=== PATIENT | female | born 1960 | race African-American/Black ===

== ENCOUNTER 2020-03-21 03:34 | Emergency (ER) | payer OTHER ==
[~2020-03-21] VITALS: Ht 165.1 cm; Wt 72.6 kg
[2020-03-21] MEDS ORDERED: SODIUM CHLORIDE 0.9% 500 ML IV ONE (03:47)
[2020-03-21] MEDS ORDERED: ONDANSETRON HCL 4 MG/2 ML VIAL IV ONE (04:15)
[2020-03-21 04:30] VITALS: BP 138/63
[2020-03-21 04:49] LABS: Basophils # (auto) 0.1 10 ^3/uL (0-0.2); Basophils % (auto) 0.4 % (0.0-2.0); Eosinophils # (auto) 0 10 ^3/uL (0-0.8); Eosinophils % (auto) 0.1 % (0.0-7.0); Hematocrit 48.7 % (36.0-46.0); Hemoglobin 15.7 g/dL (12.2-16.2); Lymphocytes # (auto) 1.9 10 ^3/uL (0.4-5.4); Lymphocytes % (auto) 13.6 % (10.0-50.0); Mean Corpuscular Hemoglobin 28.4 pg (28.0-32.0); Mean Corpuscular Hgb Conc. 32.2 g/dL (32.0-36.0); Mean Corpuscular Volume 88.3 fL (80.0-100.0); Monocytes # (auto) 0.9 10 ^3/uL (0-1.3); Monocytes % (auto) 6.8 % (0.0-12.0); Neutrophils # (auto) 10.8 10 ^3/uL (1.6-8.6); Neutrophils % (auto) 79.1 % (37.0-80.0); Nucleated Red Blood Cells % 0.1 %; Platelet Count (auto) 335 10^3/uL (140-450); Red Blood Cells 5.51 10^6/uL (4.0-5.20); Red Cell Distribution Width 15.2 % (11.8-14.3); White Blood Cell 13.6 10^3/uL (4.4-10.8)
[2020-03-21 05:08] LABS: BUN/Creatinine Ratio 16.5; Calcium 9.4 mg/dL (8.5-10.1); Potassium 3.4 mmol/L (3.5-5.1)
[2020-03-21 05:11] LABS: Bilirubin, Total 0.7 mg/dL (0.2-1.0)
== END 2020-03-21 06:28 | disposition home or self-care (01) ==
LOC: ER 03:34
DX: K52.9 Noninfective gastroenteritis and colitis, unspecified (principal); R10.84 Generalized abdominal pain; G89.29 Other chronic pain
CPT/HCPCS: 36415; 74176; 80053; 82150; 83690; 85025; 96361; 96374; 99284; J2405

== ENCOUNTER 2020-03-23 18:14 | Inpatient (IN) | payer OTHER ==
[~2020-03-23] VITALS: Ht 175.3 cm; Wt 73.7 kg
[2020-03-23] MEDS ORDERED: ONDANSETRON HCL 4 MG/2 ML VIAL IV ONE ×2 (19:00→23:15)
[2020-03-23] MEDS ORDERED: PANTOPRAZOLE 40 MG/10 ML VIAL INJ IV ONE (19:00)
[2020-03-23] MEDS ORDERED: SODIUM CHLORIDE 0.9% 1,000 ML IV ONE (19:00)
[2020-03-23 19:18] LABS: Urine Bacteria NONE SEEN /hpf (None Seen); Urine Blood 2+ /uL (Negative); Urine Mucus FEW (None Seen); Urine WBC 20 /hpf (0 - 5)
[2020-03-23] MEDS ORDERED: cefTRIAXone 1GM/50ML D5W 50 ML IV ONE (20:30)
[2020-03-23 22:02] LABS: Basophils # (auto) 0 10 ^3/uL (0-0.2); Basophils % (auto) 0.5 % (0.0-2.0); Eosinophils # (auto) 0 10 ^3/uL (0-0.8); Eosinophils % (auto) 0.2 % (0.0-7.0); Hematocrit 46.3 % (36.0-46.0); Hemoglobin 15.2 g/dL (12.2-16.2); Lymphocytes # (auto) 1.4 10 ^3/uL (0.4-5.4); Lymphocytes % (auto) 14.9 % (10.0-50.0); Mean Corpuscular Hemoglobin 28.9 pg (28.0-32.0); Mean Corpuscular Hgb Conc. 32.8 g/dL (32.0-36.0); Mean Corpuscular Volume 88.1 fL (80.0-100.0); Monocytes # (auto) 0.9 10 ^3/uL (0-1.3); Monocytes % (auto) 10.2 % (0.0-12.0); Neutrophils # (auto) 6.8 10 ^3/uL (1.6-8.6); Neutrophils % (auto) 74.2 % (37.0-80.0); Nucleated Red Blood Cells % 0.1 %; Platelet Count (auto) 298 10^3/uL (140-450); Red Blood Cells 5.26 10^6/uL (4.0-5.20); White Blood Cell 9.1 10^3/uL (4.4-10.8)
[2020-03-23 22:20] LABS: Albumin 3.9 g/dL (3.4-5.0); Calcium 9.1 mg/dL (8.5-10.1); Magnesium 2.4 mg/dL (1.6-2.6); Potassium 3.4 mmol/L (3.5-5.1)
[2020-03-23 22:27] LABS: Bilirubin, Total 0.8 mg/dL (0.2-1.0); Total Protein 7.7 g/dL (6.4-8.2)
[2020-03-23] MEDS ORDERED: ASPirin 81 mg TAB PO ONE (23:15)
[2020-03-23] MEDS ORDERED: CLOPIDOGREL BISULFATE 75 MG TAB PO ONE (23:15)
[2020-03-23] MEDS ORDERED: MORPHINE SULF INJ 2 MG/ML SYRINGE 1ML IV ONE (23:15)
[2020-03-23] MEDS ORDERED: POTASSIUM CHL 20 Meq TABLET PO ONE (23:45)
[2020-03-24 00:16] LABS: INR 1.04 (0.9-1.15); Partial Thromboplastin Time 26.6 sec (23.0-31.2)
[2020-03-24 01:32] LABS: Alcohol, Urine < 3.0 mg/dL (0-10); Amphetamine Screen, Urine NEGATIVE (NEGATIVE); Barbiturate Scree,Urine NEGATIVE (NEGATIVE); Benzodiazephine Screen, Urine NEGATIVE (NEGATIVE); Cannabinoid Screen, Urine NEGATIVE (NEGATIVE); Cocaine Screen, Urine NEGATIVE (NEGATIVE); Opiate Scree,Urine POSITIVE (NEGATIVE); Phencyclidine Screen, Urine NEGATIVE (NEGATIVE)
[2020-03-24] MEDS ORDERED: TEMAZEPAM 15 MG CAP PO PRN (02:45)
[2020-03-24] MEDS ORDERED: ACETAMINOPHEN 325 MG TAB PO PRN (02:45)
[2020-03-24] MEDS ORDERED: NITROGLYCERIN 0.4 MG SL TAB SL PRN (02:45)
[2020-03-24] MEDS ORDERED: MORPHINE SULF INJ 2 MG/ML SYRINGE 1ML IV PRN (02:45)
[2020-03-24] MEDS ORDERED: ONDANSETRON HCL 4 MG/2 ML VIAL IV PRN (02:45)
[2020-03-24 04:10] VITALS: BP 160/94
[2020-03-24] MEDS: cloNIDine HCL 0.1 MG TAB PO PRN ×2 (04:32→22:06)
[2020-03-24] MEDS ORDERED: MORP15TA PO (04:34)
[2020-03-24] MEDS ORDERED: GAB100C PO (04:34)
[2020-03-24] MEDS ORDERED: LEVO100T8 PO (04:34)
[2020-03-24 09:00] VITALS: BP 160/90
[2020-03-24] MEDS: FAMOTIDINE 20 MG TAB PO SCH ×2 (09:55→22:06)
[2020-03-24] MEDS: ASPirin 81 mg TAB PO SCH (09:55)
[2020-03-24] MEDS: cefTRIAXone 1GM/50ML D5W 50 ML IV SCH (09:55)
[2020-03-24] MEDS: ENOXAPARIN SOD 40 MG/0.4 ML SYRINGE SC SCH (09:55)
[2020-03-24] MEDS ORDERED: DOCUSATE SOD 100 MG CAP PO ONE (11:30)
[2020-03-24 13:00] VITALS: BP 141/75
--- NOTE | 2020-03-24 13:18 | NUR ---
Dr. Cowan regarding pain meds. Awaiting to call back.
[2020-03-24] MEDS: SOD CHL 0.9%/ KCL 20MEQ 1,000 ML IV SCH (13:20)
--- NOTE | 2020-03-24 14:08 | NUR ---
Received a call from Dr. Cowan, noted and carried it out.
[2020-03-24] MEDS ORDERED: GABAPENTIN 100 MG CAP PO ONE (14:15)
[2020-03-24] MEDS ORDERED: MORPHINE SULF 15mg ER tab PO PRN (14:15)
[2020-03-24] MEDS: MORPHINE SULFATE 10 MG/5 ML ORAL SOLN PO PRN ×2 (14:36→22:36)
[2020-03-24 17:00] VITALS: BP 162/96
[2020-03-24 18:27] VITALS: BP 159/90
--- NOTE | 2020-03-24 19:00 | NUR ---
Opening Shift Note Assumed care of patient, awake and alert. No S/S of distress/SOB or pain. Patient safety measures in place bed in lowest position, side rails up x2, and call light within reach. Instructed on POC and to call for assist PRN, will continue to monitor for changes Q1hr and PRN.
--- NOTE | 2020-03-24 21:00 | NUR ---
IV removal IV DC'd with clean sterile technique, catheter fully intact. Pressure dressing applied to site. Patient tolerated well. IV insertion IV access obtained, via clean sterile technique by inserting 22 gauge catheter at Right AC after 2 attempts. Patient tolerated procedure.
[2020-03-24 22:00] VITALS: BP 165/94
[2020-03-24] MEDS: GABAPENTIN 100 MG CAP PO SCH (22:05)
[2020-03-24] MEDS: ATORVASTATIN 20 MG TAB PO SCH (22:05)
[2020-03-24] MEDS: DOCUSATE SOD 100 MG CAP PO SCH (22:05)
[2020-03-25] MEDS: cloNIDine HCL 0.1 MG TAB PO PRN ×2 (04:17→15:40)
[2020-03-25 05:00] VITALS: BP 162/93
[2020-03-25] MEDS: SOD CHL 0.9%/ KCL 20MEQ 1,000 ML IV SCH ×2 (05:38→17:45)
[2020-03-25] MEDS: GABAPENTIN 100 MG CAP PO SCH ×3 (06:35→21:51)
[2020-03-25 06:36] LABS: Basophils # (auto) 0 10 ^3/uL (0-0.2); Basophils % (auto) 0.4 % (0.0-2.0); Eosinophils # (auto) 0.1 10 ^3/uL (0-0.8); Hematocrit 44.3 % (36.0-46.0); Hemoglobin 14.7 g/dL (12.2-16.2); Lymphocytes % (auto) 15.7 % (10.0-50.0); Mean Corpuscular Hemoglobin 29.9 pg (28.0-32.0); Mean Corpuscular Hgb Conc. 33.2 g/dL (32.0-36.0); Mean Corpuscular Volume 90.1 fL (80.0-100.0); Monocytes # (auto) 0.7 10 ^3/uL (0-1.3); Monocytes % (auto) 10.4 % (0.0-12.0); Neutrophils # (auto) 4.7 10 ^3/uL (1.6-8.6); Neutrophils % (auto) 72.5 % (37.0-80.0); Platelet Count (auto) 206 10^3/uL (140-450); Red Blood Cells 4.92 10^6/uL (4.0-5.20); Red Cell Distribution Width 14.9 % (11.8-14.3); White Blood Cell 6.4 10^3/uL (4.4-10.8)
[2020-03-25] MEDS: MORPHINE SULFATE 10 MG/5 ML ORAL SOLN PO PRN ×2 (06:36→14:41)
[2020-03-25 06:58] LABS: BUN/Creatinine Ratio 7.7; Calcium 8.2 mg/dL (8.5-10.1); Magnesium 1.9 mg/dL (1.6-2.6); Potassium 3.2 mmol/L (3.5-5.1)
[2020-03-25] MEDS: FAMOTIDINE 20 MG TAB PO SCH (08:53)
[2020-03-25] MEDS: DOCUSATE SOD 100 MG CAP PO SCH ×2 (08:53→21:50)
[2020-03-25] MEDS: ASPirin 81 mg TAB PO SCH (08:54)
[2020-03-25] MEDS: ENOXAPARIN SOD 40 MG/0.4 ML SYRINGE SC SCH (08:54)
[2020-03-25] MEDS: cefTRIAXone 1GM/50ML D5W 50 ML IV SCH (08:55)
[2020-03-25 09:00] VITALS: BP 158/83
[2020-03-25] MEDS ORDERED: POTASSIUM CHL 20 Meq TABLET PO ONE (10:00)
[2020-03-25] MEDS ORDERED: LACTULOSE 20Gm/30ML SOLN PO PRN (10:15)
[2020-03-25] MEDS ORDERED: LACTULOSE 20Gm/30ML SOLN PO ONE (10:15)
[2020-03-25] MEDS ORDERED: PANTOPRAZOLE 40 MG/10 ML VIAL INJ IV ONE (10:15)
[2020-03-25 13:00] VITALS: BP 161/75
--- NOTE | 2020-03-25 13:50 | NUR ---
Nutrition Assessment/Consult Notes Please refer to link for full assessment notes. Est Energy needs: 8501-7806 kcals (20-23 kcal/kgBW) Est Protein needs: 60-75 gms/day (0.8-1.0 gm/kgBW) Will continue to monitor and reassess prn. Addendum: 03/25/20 at [address] Amended: Links added.
--- NOTE | 2020-03-25 16:40 | NUR ---
paged Dr. Cowan re: pt is asking for lidoderm patch for back pain.
--- NOTE | 2020-03-25 16:52 | NUR ---
PT REPORTS THAT SHE WALKS FINE AND DOES NOT NEED P.T. INTERVENTION.
[2020-03-25 17:00] VITALS: BP 130/105
[2020-03-25] MEDS ORDERED: LIDOCAINE 5% TOPICAL PATCH TOP ONE (17:15)
[2020-03-25] MEDS: ATORVASTATIN 20 MG TAB PO SCH (21:51)
[2020-03-25 22:00] VITALS: BP 154/84
[2020-03-26] MEDS: MORPHINE SULFATE 10 MG/5 ML ORAL SOLN PO PRN ×3 (00:16→21:10)
[2020-03-26] MEDS: SOD CHL 0.9%/ KCL 20MEQ 1,000 ML IV SCH ×2 (03:00→17:54)
[2020-03-26 05:00] VITALS: BP 141/85
[2020-03-26] MEDS: GABAPENTIN 100 MG CAP PO SCH ×3 (06:06→22:24)
--- NOTE | 2020-03-26 07:28 | NUR ---
Lidocaine Patch Removed the patient's Lidocaine patch this morning at 0725hrs. The patch was supposed to be removed earlier but I was distracted by a code assist around that time on the floor. Will continue to monitor.
--- NOTE | 2020-03-26 08:00 | NUR ---
OPENING SHIFT NOTE ASSUMED CARE OF PATIENT AWAKE AND ALERT. NO S/S OF DISTRESS NOTED OR COMPLAINTS OF PAIN. PATIENT UPDATED ON POC FOR THE DAY AND ALL QUESTIONS ANSWERED. BED IS IN LOWEST, LOCKED POSITION WITH SIDE RAILS UP X2 AND CALL LIGHT WITHIN REACH. WILL CONTINUE TO MONITOR Q1H AND PRN.
[2020-03-26 09:00] VITALS: BP 145/77
[2020-03-26] MEDS: ENOXAPARIN SOD 40 MG/0.4 ML SYRINGE SC SCH (09:57)
[2020-03-26] MEDS: cefTRIAXone 1GM/50ML D5W 50 ML IV SCH (09:57)
[2020-03-26] MEDS: DOCUSATE SOD 100 MG CAP PO SCH ×2 (09:57→22:00)
[2020-03-26] MEDS: ASPirin 81 mg TAB PO SCH (09:57)
[2020-03-26] MEDS: PANTOPRAZOLE 40 MG/10 ML VIAL INJ IV SCH (09:57)
[2020-03-26 13:00] VITALS: BP 143/74
[2020-03-26 17:00] VITALS: BP 161/99
[2020-03-26] MEDS: LIDOCAINE 5% TOPICAL PATCH TOP SCH (17:54)
--- NOTE | 2020-03-26 19:30 | NUR ---
Opening Shift Note Assumed care of patient, awake and alertx4. No S/S of distress/SOB or pain. Call light is within reach, side rails up x2, bed is in the lowest position. Instructed on POC and to call for assist PRN, will continue to monitor for changes Q1hr and PRN.
[2020-03-26 22:00] VITALS: BP 154/83
[2020-03-26] MEDS: ATORVASTATIN 20 MG TAB PO SCH (22:24)
[2020-03-27 05:00] VITALS: BP 155/79
[2020-03-27 05:54] LABS: Potassium 3.5 mmol/L (3.5-5.1)
[2020-03-27 05:59] LABS: BUN/Creatinine Ratio 8.5; Calcium 8.7 mg/dL (8.5-10.1); Magnesium 2.2 mg/dL (1.6-2.6)
[2020-03-27] MEDS: SOD CHL 0.9%/ KCL 20MEQ 1,000 ML IV SCH ×2 (06:10→19:30)
[2020-03-27] MEDS: GABAPENTIN 100 MG CAP PO SCH ×3 (06:35→22:03)
[2020-03-27] MEDS: MORPHINE SULFATE 10 MG/5 ML ORAL SOLN PO PRN ×3 (06:36→22:56)
--- NOTE | 2020-03-27 07:16 | NUR ---
Endorsed care to dayshift [facility]. Patient is resting in bed, call light is within reach.
[2020-03-27 09:10] VITALS: BP 147/88
[2020-03-27] MEDS: ASPirin 81 mg TAB PO SCH (09:45)
[2020-03-27] MEDS: PANTOPRAZOLE 40 MG/10 ML VIAL INJ IV SCH (09:45)
[2020-03-27] MEDS: ENOXAPARIN SOD 40 MG/0.4 ML SYRINGE SC SCH (09:45)
[2020-03-27] MEDS: cefTRIAXone 1GM/50ML D5W 50 ML IV SCH (09:45)
[2020-03-27] MEDS: DOCUSATE SOD 100 MG CAP PO SCH ×2 (09:45→22:03)
[2020-03-27 12:23] VITALS: BP 157/81
[2020-03-27 16:42] VITALS: BP 158/88
[2020-03-27] MEDS: LIDOCAINE 5% TOPICAL PATCH TOP SCH (17:00)
--- NOTE | 2020-03-27 19:30 | NUR ---
Opening Shift Note Assumed care of patient, awake and alert x4. No S/S of distress/SOB or pain. Call light is within reach, side rails up x2, bed is in the lowest position. Instructed on POC and to call for assist PRN, will continue to monitor for changes Q1hr and PRN.
[2020-03-27 22:00] VITALS: BP 139/84
[2020-03-27] MEDS: ATORVASTATIN 20 MG TAB PO SCH (22:03)
[2020-03-28 05:00] VITALS: BP 141/87
[2020-03-28] MEDS: GABAPENTIN 100 MG CAP PO SCH ×2 (06:56→13:07)
[2020-03-28] MEDS: SOD CHL 0.9%/ KCL 20MEQ 1,000 ML IV SCH (08:50)
[2020-03-28 08:51] VITALS: BP 146/79
[2020-03-28] MEDS: cefTRIAXone 1GM/50ML D5W 50 ML IV SCH (09:15)
[2020-03-28] MEDS: ENOXAPARIN SOD 40 MG/0.4 ML SYRINGE SC SCH (09:16)
[2020-03-28] MEDS: DOCUSATE SOD 100 MG CAP PO SCH (09:16)
[2020-03-28] MEDS: ASPirin 81 mg TAB PO SCH (09:16)
[2020-03-28] MEDS: PANTOPRAZOLE 40 MG/10 ML VIAL INJ IV SCH (09:16)
[2020-03-28 13:00] VITALS: BP 167/94
[2020-03-28] MEDS: cloNIDine HCL 0.1 MG TAB PO PRN (13:08)
[2020-03-28 14:49] VITALS: BP 144/91
--- NOTE | 2020-03-28 14:55 | NUR ---
DISCHARGE INSTRUCTIONS PROVIDED TO PT. PT VERBALIZED UNDERSTANDING FOR CONTINUATION OF HOME MEDICATIONS AND FOLLOW UP APPOINTMENT. PT EDUCATED ON BP MONITORING. EDUCATIONAL MATERIALS PROVIDED; ALL QUESTIONS AND CONCERNS ADDRESSED. IV CATHETER DC #20 CATHETER INTACT, NO PHLEBITIS, TELE BOX REMOVED AND RETURNED TO TELE DEPT. PT SAFELY ESCORTED OUT OF UNIT. NO S/S OF DISTRESS.
== END 2020-03-28 15:00 | disposition home or self-care (01) | DRG 392 ==
LOC: ER 18:14 → TELE-WESTW 18:15
PROVIDERS: ADMIT Nurse Practitioner; ATTEND Internal Medicine Geriatric Medicine
DX: K52.9 Noninfective gastroenteritis and colitis, unspecified (principal); N39.0 Urinary tract infection, site not specified; E87.6 Hypokalemia; E03.9 Hypothyroidism, unspecified; I10 Essential (primary) hypertension; G89.29 Other chronic pain; E86.0 Dehydration; E78.5 Hyperlipidemia, unspecified; K59.00 Constipation, unspecified; M54.5 Low back pain; D35.01 Benign neoplasm of right adrenal gland; R79.89 Other specified abnormal findings of blood chemistry
CPT/HCPCS: 36415; 70450; 71045; 74176; 80048; 80053; 80307; 81001; 82150; 83690; 83735; 83880; 84443; 84484; 85025; 85610; 85730; 93005; 93306; 93971; C9113; G0378; J0696; J2405

== ENCOUNTER 2021-04-20 15:33 | Emergency (ER) | payer OTHER ==
[~2021-04-20] VITALS: Ht 165.1 cm; Wt 64.9 kg
[~2021-04-20 15:33] MED LIST: GAB100C PO; LEVO100T8 PO; MORP15TA PO
[2021-04-20 16:14] LABS: Basophils # (auto) 0.1 10 ^3/uL (0-0.2); Basophils % (auto) 0.6 % (0.0-2.0); Eosinophils # (auto) 0 10 ^3/uL (0-0.8); Eosinophils % (auto) 0.2 % (0.0-7.0); Hematocrit 41.4 % (36.0-46.0); Lymphocytes # (auto) 1.4 10 ^3/uL (0.4-5.4); Lymphocytes % (auto) 14.9 % (10.0-50.0); Mean Corpuscular Hemoglobin 30.4 pg (28.0-32.0); Mean Corpuscular Hgb Conc. 33.7 g/dL (32.0-36.0); Mean Corpuscular Volume 90.2 fL (80.0-100.0); Monocytes # (auto) 0.7 10 ^3/uL (0-1.3); Monocytes % (auto) 7.2 % (0.0-12.0); Neutrophils # (auto) 7.2 10 ^3/uL (1.6-8.6); Neutrophils % (auto) 77.1 % (37.0-80.0); Red Blood Cells 4.59 10^6/uL (4.0-5.20); Red Cell Distribution Width 14.5 % (11.8-14.3); White Blood Cell 9.4 10^3/uL (4.4-10.8)
[2021-04-20 16:35] LABS: Alanine Aminotransferase 24 U/L (13-56); Albumin 3.7 g/dL (3.4-5.0); Anion Gap 7 (5-15); Aspartate Aminotransferase 15 U/L (15-37); BUN/Creatinine Ratio 22.4; Blood Urea Nitrogen 17 mg/dL (7-18); Calcium 9.1 mg/dL (8.5-10.1); Carbon Dioxide 29 mmol/L (21-32); Chloride 103 mmol/L (98-107); GFR African American 100 mL/min; GFR Non-African American 83 mL/min; Glucose 103 mg/dL (74-106); Potassium 4.3 mmol/L (3.5-5.1); Sodium 139 mmol/L (136-145)
[2021-04-20 16:40] LABS: Alkaline Phosphatase 51 U/L (45-117); Bilirubin, Total 0.4 mg/dL (0.2-1.0); Total Protein 7.5 g/dL (6.4-8.2)
[2021-04-20 18:15] LABS: Urine Bacteria NONE SEEN /hpf (None Seen); Urine Blood 2+ /uL (Negative); Urine Specific Gravity 1.007 (1.001-1.035); Urine WBC <1 /hpf (0 - 5)
[2021-04-20 18:17] VITALS: BP 164/87
== END 2021-04-20 18:33 | disposition home or self-care (01) ==
LOC: ER 15:35
DX: R42 Dizziness and giddiness (principal); I16.0 Hypertensive urgency; Z87.891 Personal history of nicotine dependence
CPT/HCPCS: 36415; 80053; 81001; 84484; 85025; 93005

== ENCOUNTER 2021-04-20 20:56 | Emergency (ER) | payer OTHER ==
[~2021-04-20] VITALS: Ht 165.1 cm; Wt 64.9 kg
[2021-04-20] MEDS ORDERED: ALUM & MAG HYDROX-SIMETH LIQ(MAALOX) 30 ML PO ONE (21:45)
[2021-04-20] MEDS ORDERED: ONDANSETRON ODT 4 MG TAB PO ONE (21:45)
[2021-04-20] MEDS ORDERED: HYDROcodone-ACET 5/325MG TAB PO ONE (21:45)
[2021-04-20 22:22] LABS: Basophils # (auto) 0.1 10 ^3/uL (0-0.2); Basophils % (auto) 0.7 % (0.0-2.0); Eosinophils # (auto) 0 10 ^3/uL (0-0.8); Eosinophils % (auto) 0.5 % (0.0-7.0); Hematocrit 41.2 % (36.0-46.0); Hemoglobin 13.9 g/dL (12.2-16.2); Lymphocytes # (auto) 1.7 10 ^3/uL (0.4-5.4); Lymphocytes % (auto) 18.8 % (10.0-50.0); Mean Corpuscular Hemoglobin 30.3 pg (28.0-32.0); Mean Corpuscular Hgb Conc. 33.8 g/dL (32.0-36.0); Mean Corpuscular Volume 89.9 fL (80.0-100.0); Monocytes # (auto) 0.7 10 ^3/uL (0-1.3); Monocytes % (auto) 7.7 % (0.0-12.0); Neutrophils # (auto) 6.4 10 ^3/uL (1.6-8.6); Neutrophils % (auto) 72.3 % (37.0-80.0); Red Blood Cells 4.59 10^6/uL (4.0-5.20); Red Cell Distribution Width 14.4 % (11.8-14.3); White Blood Cell 8.9 10^3/uL (4.4-10.8)
[2021-04-20 22:40] LABS: Albumin 3.6 g/dL (3.4-5.0); Anion Gap 8 (5-15); Blood Urea Nitrogen 14 mg/dL (7-18); Calcium 9.1 mg/dL (8.5-10.1); Carbon Dioxide 30 mmol/L (21-32); Chloride 102 mmol/L (98-107); Glucose 106 mg/dL (74-106); Lipase 29 U/L (73-393); Potassium 3.7 mmol/L (3.5-5.1); Sodium 140 mmol/L (136-145)
[2021-04-20 22:42] LABS: Alanine Aminotransferase 21 U/L (13-56); Aspartate Aminotransferase 15 U/L (15-37); BUN/Creatinine Ratio 17.9; GFR African American 97 mL/min; GFR Non-African American 80 mL/min
[2021-04-20 22:46] LABS: Alkaline Phosphatase 49 U/L (45-117); Bilirubin, Total 0.5 mg/dL (0.2-1.0); Total Protein 7.7 g/dL (6.4-8.2)
[2021-04-21 00:16] VITALS: BP 159/72
[2021-04-21 01:43] LABS: Urine Bacteria NONE SEEN /hpf (None Seen); Urine Blood 2+ /uL (Negative); Urine Mucus FEW (None Seen); Urine Specific Gravity 1.018 (1.001-1.035); Urine WBC 1 /hpf (0 - 5)
== END 2021-04-21 00:20 | disposition home or self-care (01) ==
LOC: ER 20:56
DX: K51.30 Ulcerative (chronic) rectosigmoiditis without complications (principal); Z79.899 Other long term (current) drug therapy; Z87.891 Personal history of nicotine dependence
CPT/HCPCS: 36415; 74176; 76705; 80053; 81001; 83690; 84484; 85025; 99285; Q0162

== ENCOUNTER 2021-04-22 06:04 | Emergency (ER) | payer OTHER ==
[~2021-04-22] VITALS: Ht 165.1 cm; Wt 64.9 kg
[2021-04-22] MEDS ORDERED: MORPHINE SULFATE 4 MG/ML SYR/VIAL ONE (07:27)
[2021-04-22] MEDS ORDERED: PROMETHAZINE HCL 25 MG/ML 1ML IM ONE (07:30)
[2021-04-22] MEDS ORDERED: MORPHINE SULFATE 10 MG/ML INJ 1ML SDV IM ONE (07:30)
[2021-04-22] MEDS ORDERED: MORPHINE SULFATE 4 MG/ML SYR/VIAL IV ONE (07:30)
[2021-04-22] MEDS ORDERED: MORPHINE SULFATE 4 MG/ML SYR/VIAL IM ONE (07:30)
[2021-04-22] MEDS ORDERED: KETOROLAC TROMETH 60MG/2ML VIAL IM ONE (07:45)
[2021-04-22 08:04] VITALS: BP 133/72
== END 2021-04-22 08:06 | disposition home or self-care (01) ==
LOC: ER 06:04
DX: R10.12 Left upper quadrant pain (principal); R10.32 Left lower quadrant pain; G89.29 Other chronic pain; M54.5 Low back pain; Z87.891 Personal history of nicotine dependence; Z79.899 Other long term (current) drug therapy
CPT/HCPCS: 93005; 96372; 99284; J1885; J2550

== ENCOUNTER 2021-07-11 22:51 | Emergency (ER) | payer OTHER ==
[~2021-07-11] VITALS: Ht 165.1 cm; Wt 68.0 kg
[2021-07-12 00:35] VITALS: BP 131/105
== END 2021-07-12 01:14 | disposition home or self-care (01) ==
LOC: ER 22:54
DX: G43.909 Migraine, unspecified, not intractable, without status migrainosus (principal); E03.9 Hypothyroidism, unspecified; Z87.891 Personal history of nicotine dependence
CPT/HCPCS: 70450

== ENCOUNTER 2021-09-11 22:52 | Emergency (ER) | payer OTHER ==
[~2021-09-11] VITALS: Ht 165.1 cm; Wt 70.3 kg
[2021-09-12] MEDS ORDERED: HYDROmorphone HCL 2 MG/ML VL IM ONE (07:15)
[2021-09-12] MEDS ORDERED: ONDANSETRON ODT 4 MG TAB PO ONE (07:15)
[2021-09-12 07:56] LABS: Urine Bacteria FEW /hpf (None Seen); Urine Blood 2+ /uL (Negative); Urine Specific Gravity 1.009 (1.001-1.035); Urine WBC <1 /hpf (0 - 5)
[2021-09-12] MEDS ORDERED: SULF800T7 PO (08:02)
[2021-09-12 08:13] VITALS: BP 131/82
== END 2021-09-12 08:26 | disposition home or self-care (01) ==
LOC: ER 22:52
DX: M54.50 Low back pain, unspecified (principal); M54.6 Pain in thoracic spine; N39.0 Urinary tract infection, site not specified; Z76.0 Encounter for issue of repeat prescription; Z87.891 Personal history of nicotine dependence
CPT/HCPCS: 81001; 93005; 96372; 99284; J1170; Q0162

== ENCOUNTER 2022-04-13 10:47 | Emergency (ER) | payer OTHER ==
[~2022-04-13] VITALS: Ht 165.1 cm; Wt 65.4 kg
[~2022-04-13 10:47] MED LIST changes: +SULF800T7 PO
[2022-04-13] MEDS ORDERED: MORPHINE SULFATE 4 MG/ML SYR/VIAL IV ONE (11:30)
[2022-04-13] MEDS ORDERED: PANTOPRAZOLE 40 MG/10 ML VIAL INJ IV ONE (11:30)
[2022-04-13] MEDS ORDERED: ONDANSETRON HCL 4 MG/2 ML VIAL IV ONE (11:30)
[2022-04-13] MEDS ORDERED: SODIUM CHLORIDE 0.9% 1,000 ML IVB ONE (11:30)
[2022-04-13 11:47] LABS: Basophils # (auto) 0.1 10 ^3/uL (0-0.2); Basophils % (auto) 0.7 % (0.0-2.0); Eosinophils # (auto) 0 10 ^3/uL (0-0.8); Eosinophils % (auto) 0.2 % (0.0-7.0); Hematocrit 43.5 % (36.0-46.0); Hemoglobin 14.3 g/dL (12.2-16.2); Lymphocytes # (auto) 1.4 10 ^3/uL (0.4-5.4); Lymphocytes % (auto) 14.8 % (10.0-50.0); Mean Corpuscular Hemoglobin 28.9 pg (28.0-32.0); Mean Corpuscular Hgb Conc. 32.8 g/dL (32.0-36.0); Mean Corpuscular Volume 88.4 fL (80.0-100.0); Monocytes # (auto) 0.5 10 ^3/uL (0-1.3); Monocytes % (auto) 5.2 % (0.0-12.0); Neutrophils # (auto) 7.6 10 ^3/uL (1.6-8.6); Neutrophils % (auto) 79.1 % (37.0-80.0); Nucleated Red Blood Cells % 0.1 %; Red Blood Cells 4.93 10^6/uL (4.0-5.20); Red Cell Distribution Width 14.3 % (11.8-14.3); White Blood Cell 9.6 10^3/uL (4.4-10.8)
[2022-04-13 12:01] LABS: Albumin 3.8 g/dL (3.4-5.0); Potassium 4.2 mmol/L (3.5-5.1)
[2022-04-13 12:11] LABS: BUN/Creatinine Ratio 21.9; Bilirubin, Total 0.7 mg/dL (0.2-1.0); Calcium 9.4 mg/dL (8.5-10.1); Total Protein 7.7 g/dL (6.4-8.2)
[2022-04-13 12:33] LABS: Alcohol, Urine < 3.0 mg/dL (0-10); Benzodiazephine Screen, Urine NEGATIVE (NEGATIVE); Cannabinoid Screen, Urine NEGATIVE (NEGATIVE)
[2022-04-13 12:41] LABS: Amphetamine Screen, Urine NEGATIVE (NEGATIVE); Barbiturate Scree,Urine NEGATIVE (NEGATIVE); Cocaine Screen, Urine NEGATIVE (NEGATIVE); Opiate Scree,Urine POSITIVE (NEGATIVE); Phencyclidine Screen, Urine NEGATIVE (NEGATIVE)
[2022-04-13 13:00] LABS: Urine Bacteria NONE SEEN /hpf (None Seen); Urine Blood 3+ /uL (Negative); Urine Specific Gravity 1.012 (1.001-1.035); Urine WBC 1 /hpf (0 - 5)
[2022-04-13 13:43] LABS: INR 1.02 (0.9-1.15)
[2022-04-13] MEDS ORDERED: ONDA-144 PO (14:23)
[2022-04-13] MEDS ORDERED: TRAM-297 PO (14:23)
[2022-04-13 15:35] VITALS: BP 143/63
== END 2022-04-13 15:37 | disposition home or self-care (01) ==
LOC: ER 10:47
DX: R10.32 Left lower quadrant pain (principal); R10.12 Left upper quadrant pain; E03.9 Hypothyroidism, unspecified; G89.29 Other chronic pain; M54.9 Dorsalgia, unspecified; Z90.89 Acquired absence of other organs; Z87.891 Personal history of nicotine dependence; Z79.899 Other long term (current) drug therapy
CPT/HCPCS: 36415; 74176; 80053; 80307; 81001; 83690; 83735; 85025; 85610; 85730

== ENCOUNTER 2022-07-16 04:46 | Emergency (ER) | payer OTHER ==
[~2022-07-16] VITALS: Ht 165.1 cm; Wt 66.8 kg
[~2022-07-16 04:46] MED LIST changes: +ONDA-144 PO; +TRAM-297 PO
[2022-07-16 07:44] VITALS: BP 124/79
[2022-07-16] MEDS ORDERED: KETOROLAC TROMETH 30 MG/ML 1ML VIAL IM ONE (08:00)
[2022-07-16 09:03] LABS: Basophils # (auto) 0.1 10 ^3/uL (0-0.2); Basophils % (auto) 0.6 % (0.0-2.0); Eosinophils # (auto) 0.1 10 ^3/uL (0-0.8); Eosinophils % (auto) 0.6 % (0.0-7.0); Hematocrit 43.5 % (36.0-46.0); Hemoglobin 14.7 g/dL (12.2-16.2); Lymphocytes # (auto) 1.7 10 ^3/uL (0.4-5.4); Lymphocytes % (auto) 19.7 % (10.0-50.0); Mean Corpuscular Hemoglobin 30.4 pg (28.0-32.0); Mean Corpuscular Hgb Conc. 33.8 g/dL (32.0-36.0); Mean Corpuscular Volume 89.9 fL (80.0-100.0); Monocytes # (auto) 0.7 10 ^3/uL (0-1.3); Monocytes % (auto) 8.2 % (0.0-12.0); Neutrophils # (auto) 6.3 10 ^3/uL (1.6-8.6); Neutrophils % (auto) 70.9 % (37.0-80.0); Nucleated Red Blood Cells % 0.1 %; Red Blood Cells 4.84 10^6/uL (4.0-5.20); Red Cell Distribution Width 14.9 % (11.8-14.3); White Blood Cell 8.9 10^3/uL (4.4-10.8)
[2022-07-16 09:22] LABS: Albumin 3.8 g/dL (3.4-5.0); Calcium 9.3 mg/dL (8.5-10.1); Potassium 4.6 mmol/L (3.5-5.1)
[2022-07-16 09:25] LABS: BUN/Creatinine Ratio 21.7; Bilirubin, Total 0.5 mg/dL (0.2-1.0); Total Protein 7.5 g/dL (6.4-8.2)
[2022-07-16] MEDS ORDERED: HYDR1TAB97 PO (13:12)
[2022-07-16] MEDS ORDERED: HYDROcodone-ACET 5/325MG TAB PO ONE (13:15)
== END 2022-07-16 14:37 | disposition home or self-care (01) ==
LOC: ER 04:46
DX: M54.16 Radiculopathy, lumbar region (principal); Z87.891 Personal history of nicotine dependence
CPT/HCPCS: 36415; 72100; 72131; 80053; 85025; 85652; 86141; 96372; 99285; J1885

== ENCOUNTER 2022-12-01 04:57 | Emergency (ER) | payer OTHER ==
[~2022-12-01] VITALS: Ht 165.1 cm; Wt 69.6 kg
[~2022-12-01 04:57] MED LIST changes: +HYDR1TAB97 PO
[2022-12-01 06:32] VITALS: BP 151/65
[2022-12-01] MEDS ORDERED: IBUP800T27 PO (06:48)
[2022-12-01] MEDS ORDERED: METH750T22 PO (06:48)
[2022-12-01] MEDS ORDERED: KETOROLAC TROMETH 60MG/2ML VIAL IM ONE (07:00)
== END 2022-12-01 07:01 | disposition home or self-care (01) ==
LOC: ER 04:57
DX: M24.811 Other specific joint derangements of right shoulder, not elsewhere classified (principal); M77.9 Enthesopathy, unspecified
CPT/HCPCS: 73030; 96372; 99283; J1885

== ENCOUNTER 2025-05-24 10:59 | Emergency (ER) | payer OTHER ==
[~2025-05-24] VITALS: Ht 165.1 cm; Wt 68.9 kg
[~2025-05-24 10:59] MED LIST changes: +CEL100T PO; +IBUP-1456 PO; +METH-1182 PO; +PRED20TA2 PO; +SULF800T23 PO; -SULF800T7 PO
[2025-05-24] MEDS ORDERED: AUG875T PO (12:43)
[2025-05-24] MEDS ORDERED: IBUP1TAB5 PO (12:43)
--- NOTE | 2025-05-24 12:43 | ED.PDOC ---
Eye-HPI HPI Comments This is a pleasant 64-year-old female that presents with a chief complaint of sinus congestion, sore throat and a nonproductive cough She has been experiencing sinus congestion and sore throat for the past three days and initially the symptoms started with a sore throat then progressed to sinus congestion and a nonproductive cough. She is taking [id number] cough and cold medications with temporary improvement but continues it is still difficult for her to swallow saliva Denies chest pain shortness of breath Denies inability to move neck, history of meningitis Denies difficulty swallowing nor persistent salivation Denies fevers chills night sweats Denies persistent cough, runny nose, congestion Denies loss of appetite, unintentional weight loss over the past 3 months Denies voice changes Denies history of asthma or seasonal allergies Chief Complaint: Sore Throat Time Seen by MD: 11:23 Primary Care Provider: Inna Reviewed Notes: Nurses Notes, Medications, Allergies Allergies: Coded Allergies: NO KNOWN ALLERGIES (Unverified , 03/23/20) Home Meds Active Scripts Ibuprofen Micronized (Ibuprofen) 600 Mg Tab, 600 MG PO TIDWM for 10 Days, #30 TAB 0 Refills Prov:ADAIR IZAGUIRRE NP 05/24/25 Amoxicillin & Pot Clavulanate (AUGMENTIN TABLET) 875 Mg Tb, 875 MG PO BID for 7 Days, #14 TAB 0 Refills Prov:ADAIR IZAGUIRRE NP 05/24/25 Prednisone (Prednisone) 20 Mg Tab, 40 MG PO DAILY for 5 Days, #10 TAB 0 Refills Prov:ADAIR IZAGUIRRE NP 06/24/24 Celecoxib (CeleBREX CAPSULE) 100 Mg Cp, 1 CAP PO BID for 30 Days, #60 CAP 0 Ref ills Prov:ADAIR IZAGUIRRE NP 06/24/24 Methocarbamol (Methocarbamol) 750 Mg Tab, 750 MG PO QHSP PRN, #20 TAB Prov:ALIX MOCTEZUMA 12/01/22 Ibuprofen (Ibuprofen) 800 Mg Tab, 1 TAB PO TID, #30 TAB Prov:ALIX MOCTEZUMA 12/01/22 Hydrocodone-Acetaminophen (Hydrocodone/Acetaminophen 5-325 mg) 1 Tab Tab, 1 TAB PO BIDP PRN for 2 Days, #4 TAB Prov:MINERVA VAZQUEZ MD 07/16/22 Ondansetron (Zofran) 4 Mg Tab, 1 TAB PO Q6HR, #20 TAB Prov:ADELSO SHERMAN MD 04/13/22 Tramadol Hcl (Ultram) 50 Mg Tab, 1 TAB PO Q6HR, #30 TAB Prov:ADELSO SHERMAN MD 04/13/22 Sulfamethoxazole W/Trimethopri (Trimethoprim/Sulfamethoxa) 1 Tab Tab, 1 TAB PO BID for 7 Days, #14 TAB 0 Refills Prov:JAYA JENKINS 09/12/21 Reported Medications Levothyroxine Sodium (Levothyroxine Sodium) 100 Mcg Tab, 88.8 MCG PO DAILYPRN 03/24/20 Gabapentin (Gabapentin) 100 Mg Cap, 100 MG PO TID 03/24/20 Morphine Sulfate (Morphine Sulfate) 15 Mg Tab, 1 TAB PO QID PRN for PAIN SCALE 7 THRU 10 03/24/20 Information Source: Patient Mode of Arrival: Ambulatory Past Medical History PAST MEDICAL HISTORY: Thyroid Surgical History: Thyroidectomy 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 No tonsillar exudate. No hot potato worse) Neck: Full Range of Motion, Non-Tender, Normal, Normal Inspection Respiratory: Chest Non-Tender, Lungs Clear, No Accessory Muscle Use, No Respiratory Distress, Normal Breath Sounds Cardiovascular: No Edema, No JVD, No Murmur, No Gallop, Normal Peripheral Pulses, Regular Rate/Rhythm Breast Exam: Deferred Gastrointestinal: No Organomegaly, Non Tender, No Pulsatile Mass, Normal Bowel Sounds, Soft Genitalia: Deferred Pelvic: Deferred Rectal: Deferred Extremities: No calf tenderness, Normal capillary refill, Normal inspection, Normal range of motion, Non-tender, No pedal edema Musculoskeletal : Apperance: Normal Neurologic: Alert, account information clerk II-XII nml as Tested, No Motor Deficits, Normal Affect, Normal Mood, No Sensory Deficits Cerebellar Function: Normal Reflexes: Normal Skin: Dry, Normal Color, Warm Lymphatic: No Adenopathy Was a procedure done? Was a procedure done?: No EENT DIFF Eye: Other Sore Throat: Streptococcal, Viral Pharyngitis, URI X-Ray, Labs, Meds, VS Vital Signs Date Time Temp Pulse Resp B/P (MAP) Pulse Ox O2 Delivery O2 Flow Rate FiO2 05/24/25 12:49 98.7 89 16 146/74 (98) 98 98.7 05/24/25 12:49 89 17 98 Room Air 05/24/25 11:01 99.6 96 17 150/71 97 99.6 X-Ray, Labs, Meds, VS Comment Patient presents with a chief complaint of a sore throat. After review of systems and physical examination there are no no concerns or red flags for peritonsillar abscess, abscess formation, epiglottitis, retropharyngeal abscess formation or airway obstruction. No concerns for peritonsillar abscess as patient denies severe sore throat, muffled or hot potato voice, and difficulty handling secretions. No concerns for abscess formation as the soft palate is symmetrical and there is no displacement of the uvula and the uvula is also midline. No concerns for epiglottitis as patient denies severe sore throat, dysphagia, muffled voice, patient is not drooling nor is patient in tripod position. No signs of retropharyngeal abscess formation as patient has no fevers, stiff neck, drooling no stridor No signs of airway obstruction as patient denies sensation of foreign body vital signs stable on room air. The patient is overall well-appearing nontoxic on exam. On physical exam, respirations even and unlabored, clear to auscultation bilaterally. Oxygen stable on room air. Did not have any focal lung findings and therefore chest x-ray was not indicated during this exam Low suspicion of strep pharyngitis given physical exam findings and patient's presenting symptoms No signs of meningismus on exam Overall, the patient is well hydrated and nontoxic. Plan for symptomatic control for fever and pain as needed. The patient was able to tolerate p.o. intake in the ED. at this time, patient is safe for discharge home. The exam findings and plan discussed. We will discharge home with PCP follow up and strict return precautions. Discussed that cough can linger up to 6 weeks after viral URI Supportive care and return precautions discussed Counseled viral infection and explained that antibiotics would not be helpful in resolving the illness sooner. Recommended vitamin C, rest, handwashing, and symptomatic care. Expect 2-week course with possibly of cough lingering up to 6 weeks. Nonpharmacological remedies for fluids has been recommended as well Time of 1ST Reevaluation: 12:42 Reevaluation 1ST: Improved Patient Education/Counseling: Diagnosis, Treatment Family Education/Counseling: Diagnosis, Treatment SEPSIS Sepsis Screen Date sepsis recognized/suspect: May 24, 2025 Time Sepsis recognized/suspect: 1101 Recent Procedure: No On Antibiotic Therapy: No Respiratory Rate >20: No Heart Rate >90: Yes Temp<36 C (96.8 F) or >38.3 C: No SBP <90 or MAP <65 mmHG: No New Acute Mental Status Change: No Is the patient on CPAP, BIPAP,: No Vital Signs Date Time Temp Pulse Resp B/P (MAP) Pulse Ox O2 Delivery O2 Flow Rate FiO2 05/24/25 12:49 98.7 89 16 146/74 (98) 98 98.7 05/24/25 12:49 89 17 98 Room Air 05/24/25 11:01 99.6 96 17 150/71 97 99.6 Departure 1 Departure Time of Disposition: 12:42 Impression: Primary Impression: Tonsil stone Additional Impression: Pharyngitis Qualified Codes: J02.9 - Acute pharyngitis, unspecified Disposition: 01 HOME / SELF CARE / HOMELESS Condition: Fair e-Prescriptions Ibuprofen Micronized (Ibuprofen) 600 Mg Tab 600 MG PO TIDWM for 10 Days, #30 TAB 0 Refills Prov: ADAIR IZAGUIRRE NP 05/24/25 Amoxicillin & Pot Clavulanate (AUGMENTIN TABLET) 875 Mg Tb 875 MG PO BID for 7 Days, #14 TAB 0 Refills Prov: ADAIR IZAGUIRRE NP 05/24/25 Critical Care Note Critical Care Time?: No Stability Stability form required: No Heart Score Heart Score: Heart Score Response (Comments) Value History N/A 0 EKG N/A 0 Age N/A 0 Risk Factors N/A 0 Troponin N/A 0 Total 0 ADAIR IZAGUIRRE NP May 24, 2025 12:43
[2025-05-24 12:49] VITALS: BP 146/74; PULSE 89; RESP 17; TEMP 98.7; O2SAT 98
== END 2025-05-24 12:52 | disposition home or self-care (01) ==
LOC: ER 10:59
DX: J02.9 Acute pharyngitis, unspecified (principal); J35.8 Other chronic diseases of tonsils and adenoids; Z79.899 Other long term (current) drug therapy; Z79.52 Long term (current) use of systemic steroids; Z79.1 Long term (current) use of non-steroidal anti-inflammatories (NSAID); Z90.89 Acquired absence of other organs

== ENCOUNTER 2025-06-02 22:07 | Emergency (ER) | payer OTHER ==
[~2025-06-02] VITALS: Ht 165.1 cm; Wt 70.8 kg
[~2025-06-02 22:07] MED LIST changes: +AUG875T PO; +IBUP1TAB5 PO
[2025-06-02 22:12] VITALS: BP 165/99; PULSE 82; RESP 18; TEMP 98.4; O2SAT 99
--- NOTE | 2025-06-02 22:55 | DVH ---
CLINICAL HISTORY: head injury TECHNIQUE: Helical scanning was performed of the head from the skull base to the vertex. Multiplanar reconstructions were performed. This exam was performed according to our departmental dose optimization program. Up-to-date CT equipment and radiation dose reduction techniques are utilized as appropriate. CTDI 53 DLP 67 COMPARISON: [id number] on DOS: 07/16/22, [email or web address] on DOS: 07/16/22 FINDINGS: There is no evidence for acute intracranial hemorrhage, acute ischemic changes, mass, mass effect, or extra-axial fluid collection. There is no hydrocephalus or midline shift. There is no effacement of the cerebral sulci and basal subarachnoid cisterns. The green-white matter differentiation is well maintained. There is mild right frontal scalp soft tissue swelling / hematoma formation. There is no skull fracture seen. The imaged paranasal sinuses are clear. IMPRESSION: Mild right frontal scalp subcutaneous soft tissue swelling/ hematoma formation. No underlying acute intracranial abnormality seen.
--- NOTE | 2025-06-02 23:58 | ED.PDOC ---
HPI (NEURO) HPI Comments 64-YEAR-OLD FEMALE PRESENTS TO ER WITH COMPLAINTS OF HEAD INJURY X1 DAY. PATIENT REPORTS THAT A RUG SLIPPED OUT IN FRONT OF HER WHEN SHE WAS WALKING IN HER KITCHEN AT 10:30 P.M. CAUSING HER TO FALL FORWARD AND HIT HER FOREHEAD AGAINST A COUNTER AND HAS SINCE BEEN EXPERIENCING SWELLING/MILD TENDERNESS LOCALIZED TO RIGHT FRONTAL SCALP. DENIES USE OF MEDICATIONS FOR CURRENT SYMPTOMS AND PRESENTS TO ER AMBULATORY ON ARRIVAL, ALERT ORIENTED X4, WITH LAW SANTO GAIT, IN NO DISTRESS. PATIENT DENIES LOC/FALLING DOWN, HEADACHE, NAUSEA/VOMITING, NUMBNESS/TINGLING, DIZZINESS, VISION CHANGES, USE OF BLOOD THINNERS, NECK PAIN OR ANY FURTHER SYMPTOMS/COMPLAINTS Chief Complaint: Fall Injury Time Seen by MD: 22:23 Primary Care Provider: Inna Glover Notes: Nurses Notes, Medications, Allergies Information Source: Patient Mode of Arrival: Ambulatory Past Medical History PAST MEDICAL HISTORY: Thyroid Surgical History: Thyroidectomy RECEPTION MANAGER History: No Pertinent RECEPTION MANAGER History Family History Family History: Family hx of Cancer Social History Smoker: Quit Less Than 1 Year Alcohol: Denies ETOH Use Drugs: Denies Drug Use Lives In: Home Constitutional: denies: chills, diaphoresis, fatigue, fever, malaise, sweats, weakness, others EENTM: denies: blurred vision, double vision, ear bleeding, ear discharge, ear drainage, ear pain, ear ringing, eye pain, eye redness, hearing loss, mouth pain, mouth swelling, nasal discharge, nose bleeding, nose congestion, nose pain, photophobia, tearing, throat pain, throat swelling, voice changes, others Respiratory: denies: cough, hemoptysis, orthopnea, SOB at rest, shortness of breath, SOB with excertion, stridor, wheezing, others Cardiovascular: denies: chest pain, dizzy spells, diaphoresis, Dyspnea on exertion, edema, irregular heart beat, left arm pain, lightheadedness, palpit ations, PND, syncope, others Gastrointestinal: denies: abdomen distended, abdominal pain, blood streaked b owels, constipated, diarrhea, dysphagia, difficulty swallowing, hematemesis, melena, nausea, poor appetite, poor fluid intake, rectal bleeding, rectal pain, vomiting, others Genitourinary: denies: abnormal vagina bleeding, burning, dyspareunia, dysuria, flank pain, frequency, hematuria, incontinence, pain, , vagina discharge, urgency, others Neurological: reports: others ( STATED IN HPI) Musculoskeletal: denies: back pain, gout, joint pain, joint swelling, muscle pain, muscle stiffness, neck pain, others Integumetry: reports: others ( STATED IN HPI) Allergic/Immunocompromised: denies: Difficulty Healing, Frequent Infections, Hives, Itching, others Hematologic/Lymphatic: denies: anemia, blood clots, easy bleeding, easy bruising, swollen glands, others Endocrine: denies: excessive hunger, excessive sweating, excessive thirst, excessive urination, flushing, intolerance to cold, intolerance to heat, unexplained weight gain, unexplained weight loss, others Psychiatric: denies: anxiety, bipolar disorder, depression, hopeless, panic disorder, schizophrenia, sleepless, suicidal, others Physical Exam General Appearance: No Apparent Distress HEENT: Normal ENT Inspection, PERRL/EOMI, Pharynx Normal, TMs Normal, Other (TTP/MILD SWELLING NOTED TO RIGHT FRONTAL SCALP. NO FURTHER SKIN CHANGES NOTED) Neck: Full Range of Motion, Non-Tender, Normal Respiratory: Chest Non-Tender, Lungs Clear, No Accessory Muscle Use, No Respiratory Distress, Normal Breath Sounds Cardiovascular: No Murmur, No Gallop, Regular Rate/Rhythm Breast Exam: Deferred Gastrointestinal: NOT DONE Genitalia: Deferred Pelvic: Deferred Rectal: Deferred Extremities: Normal capillary refill, Normal range of motion Neurologic: Alert (GCS 15), chassis mechanic II-XII nml as Tested, No Motor Deficits, Normal Affect, Normal Mood, No Sensory Deficits Cerebellar Function: Normal Reflexes: Normal Skin: Dry, Normal Color, Warm Lymphatic: No Adenopathy Was a procedure done? Was a procedure done?: No Sedation Sedation?: No Differential Diagnosis (SZ) Headache: Subarachnoid Hemorrhage, Subdural Hemorrhage, Other (FRACTURE, LACERATION) X-Ray, Labs, Meds, VS Vital Signs Date Time Temp Pulse Resp B/P (MAP) Pulse Ox O2 Delivery O2 Flow Rate FiO2 06/02/25 22:12 98.4 82 18 165/99 99 98.4 PATIENT: TARAS WELLS GACCT: [id number] UNIT: [id number] : 1960 LOC: ER ROOM / BED: / AGE / SEX: 64 / F ADM STATUS: REG ER SERVICE 22 ORDERING PHYSICIAN: JAYA JENKINS PROCEDURE(s): HWOCT - HEAD WITHOUT CONTRAST REASON: head injury ORDER NUMBER(s): [id number], ACCESSION NUMBER(s): [id number] CLINICAL HISTORY: head injury TECHNIQUE: Helical scanning was performed of the head from the skull base to the vertex. Multiplanar reconstructions were performed. This exam was performed according to our departmental dose optimization program. Up-to-date CT equipment and radiation dose reduction techniques are utilized as appropriate. CTDI 53 DLP 67 COMPARISON: [id number] on DOS: 07/16/22, [email or web address] on DOS: 07/16/22 FINDINGS: There is no evidence for acute intracranial hemorrhage, acute ischemic changes, mass, mass effect, or extra-axial fluid collection. There is no hydrocephalus or midline shift. There is no effacement of the cerebral sulci and basal subarachnoid cisterns. The green-white matter differentiation is well maintained. There is mild right frontal scalp soft tissue swelling / hematoma formation. There is no skull fracture seen. The imaged paranasal sinuses are clear. IMPRESSION: Mild right frontal scalp subcutaneous soft tissue swelling/ hematoma formation. No underlying acute intracranial abnormality seen. ATED BY: CHAVA THOMAS MD DICTATED DATE/TIME: 06/02/252251 SIGNED BY: CHAVA THOMAS MD SIGNED DATE/TIME: 06/02/252251 CC: CT HEAD WITHOUT CONTRAST REVIEWED PATIENT HAD IMPROVEMENT IN SYMPTOMS, DENIED ANY PAIN AND IN NO DISTRESS PRIOR TO DISCHARGE ADVISED ON REST/NO STRENUOUS ACTIVITY AND ALTERNATE ICE ON/OFF NEEDED FOR PAIN ADVISED TO FOLLOW UP WITH PCP IN 1-2 DAYS PATIENT ALERT AND ORIENTED X4 PRIOR TO DISCHARGE. PATIENT VERBALIZED UNDERSTANDING AND AGREEABLE WITH CURRENT PLAN OF CARE ADVISED TO RETURN TO ER IMMEDIATELY IF SYMPTOMS WORSEN Images Reviewed?: Images reviewed and evaluated by me Time of 1ST Reevaluation: 23:24 Reevaluation 1ST: N/A Patient Education/Counseling: Diagnosis, Treatment, Prognosis, Need For Follow Up Family Education/Counseling: No Family Present Departure 1 Departure Time of Disposition: 23:58 Impression: Primary Impression: Scalp contusion Qualified Codes: S00.03XA - Contusion of scalp, initial encounter Additional Impression: Head injury Qualified Codes: S09.90XA - Unspecified injury of head, initial encounter Disposition: HOME / SELF CARE / HOMELESS Condition: Stable Discharged With: Self Critical Care Note Critical Care Time?: No Stability Stability form required: No Heart Score Heart Score: Heart Score Response (Comments) Value History N/A 0 EKG N/A 0 Age N/A 0 Risk Factors N/A 0 Troponin N/A 0 Total 0 JAYA JENKINS Jun 02, 2025 23:58
== END 2025-06-03 00:17 | disposition home or self-care (01) ==
LOC: ER 22:07
DX: S00.03XA Contusion of scalp, initial encounter (principal); Z90.89 Acquired absence of other organs; X58.XXXA Exposure to other specified factors, initial encounter; Y93.89 Activity, other specified; Y92.89 Other specified places as the place of occurrence of the external cause; Y99.8 Other external cause status
CPT/HCPCS: 70450